=== PATIENT | male | born 1945 | race Asian ===

== ENCOUNTER 2017-02-11 19:10 | Emergency (ER) | payer MEDICARE, MEDICAID ==
[~2017-02-11] VITALS: Ht 167.6 cm; Wt 68.2 kg
[~2017-02-11 19:10] MED LIST: NOCURR
[2017-02-11] MEDS ORDERED: PERTUSS(ACELL),DIPH,TET VAC/PF 0.5 ML VIAL IM ONE (19:45)
[2017-02-11 20:00] VITALS: BP 132/77
[2017-02-11] MEDS ORDERED: LIDOCAINE HCL 1% 10 ML VIAL INJ ONE (20:15)
== END 2017-02-11 21:33 | disposition home or self-care (01) ==
LOC: EMS 19:12
DX: S61.217A Laceration without foreign body of left little finger without damage to nail, initial encounter (principal); W45.8XXA Other foreign body or object entering through skin, initial encounter; Y93.89 Activity, other specified; Y92.89 Other specified places as the place of occurrence of the external cause; Y99.8 Other external cause status
CPT/HCPCS: 12002; 73140; 90471; 90715; 99284; J3490

== ENCOUNTER 2017-02-24 14:21 | Emergency (ER) | payer MEDICARE, MEDICAID ==
[~2017-02-24] VITALS: Ht 167.6 cm; Wt 67.3 kg
[2017-02-24 15:10] VITALS: BP 137/75
== END 2017-02-24 15:40 | disposition home or self-care (01) ==
LOC: EMS 14:22
DX: Z48.02 Encounter for removal of sutures (principal)
CPT/HCPCS: 99282

== ENCOUNTER 2020-02-19 03:22 | Emergency (ER) | payer MEDICARE, MEDICAID ==
[~2020-02-19] VITALS: Ht 167.6 cm; Wt 68.2 kg
[2020-02-19] MEDS ORDERED: FLUORESCEIN SODIUM 1 MG STRIP OU ONE (03:30)
[2020-02-19] MEDS ORDERED: OLOPATADINE HCL 0.1% 5 ML OPHTHALMIC SOLUTION OU ONE (04:00)
[2020-02-19 04:27] VITALS: BP 175/86
[2020-02-19] MEDS ORDERED: GENTAMICIN SULFATE 0.3% OPHTHALMIC SOLUTION 5 ML OU ONE (04:30)
== END 2020-02-19 04:56 | disposition home or self-care (01) ==
LOC: EMS 03:22
DX: H10.13 Acute atopic conjunctivitis, bilateral (principal)